=== PATIENT | male | born 1990 | race Caucasian/White ===

== ENCOUNTER 2022-07-21 14:32 | Inpatient (IN) | payer OTHER ==
[2022-07-21 15:25] VITALS: BMI 22.3
[2022-07-21] MEDS ORDERED: MAGNESIUM HYDROX 2400MG/30ML ORAL SUSPENSION 30 ML CUP PO PRN (16:03)
[2022-07-21] MEDS ORDERED: chlordiazePOXIDE HCL 25 MG CAPSULE PO PRN (16:03)
[2022-07-21] MEDS ORDERED: MAG HYDROX/AL HYDROX/SIMETH 30 ML UNIT-DOSE CUP PO PRN (16:03)
[2022-07-21] MEDS ORDERED: IBUPROFEN 400 MG TABLET (FP) PO PRN (16:03)
[2022-07-21] MEDS ORDERED: hydrOXYzine PAMOATE 25 MG CAPSULE (FP) PO PRN (16:03)
[2022-07-21] MEDS ORDERED: BISMUTH SUBSALICYLATE 524 MG/30 ML PO PRN (16:03)
[2022-07-21] MEDS ORDERED: POLYETHYLENE GLYCOL (HEALTHYLAX) 3350 17 GM PACKET PO PRN (16:03)
[2022-07-21] MEDS ORDERED: NALOXONE HCL (KLOXXADO) 8 MG SPRAY NS PRN (16:03)
[2022-07-21] MEDS ORDERED: IBUPROFEN 600 MG TABLET (FP) PO PRN (16:03)
[2022-07-21] MEDS ORDERED: ACETAMINOPHEN 325 MG TABLET (FP) PO PRN ×2 (16:03)
[2022-07-21] MEDS ORDERED: chlordiazePOXIDE HCL 25 MG CAPSULE PO ONE (16:03)
[2022-07-21] MEDS ORDERED: LOPERAMIDE HCL 2 MG CAPSULE PO PRN (16:03)
[2022-07-21] MEDS ORDERED: ONDANSETRON *ODT* 4 MG TABLET SL PRN (16:03)
[2022-07-21] MEDS ORDERED: DICYCLOMINE HCL 10 MG CAPSULE PO PRN (16:03)
[2022-07-21] MEDS ORDERED: METHOCARBAMOL 500 MG TABLET PO PRN (16:03)
[2022-07-21] MEDS ORDERED: BENZOCAINE/MENTHOL (CHLORASEPTIC ) LOZENGE MM PRN (16:03)
[2022-07-21] MEDS ORDERED: chlordiazePOXIDE HCL 25 MG CAPSULE ONE (16:40)
[2022-07-21] MEDS: chlordiazePOXIDE HCL 25 MG CAPSULE PO SCH ×2 (17:54→22:21)
[2022-07-21] MEDS: PRENATAL VITAMINS W/ FOLIC ACID TABLET (FP) PO SCH (17:55)
[2022-07-21] MEDS: NICOTINE 7 MG/24 HOURS TOPICAL PATCH TD SCH (18:04)
[2022-07-21] MEDS: NICOTINE 10 MG CARTRIDGE (INHALER) IH PRN (18:05)
[2022-07-21] MEDS: THIAMINE HCL 100 MG TABLET (FP) PO SCH (22:20)
[2022-07-21] MEDS: MELATONIN 5 MG TABLETS PO SCH (22:20)
[2022-07-22] MEDS: chlordiazePOXIDE HCL 25 MG CAPSULE PO SCH ×4 (06:48→22:02)
[2022-07-22] MEDS: PRENATAL VITAMINS W/ FOLIC ACID TABLET (FP) PO SCH (10:09)
[2022-07-22] MEDS: NICOTINE 7 MG/24 HOURS TOPICAL PATCH TD SCH (10:10)
[2022-07-22] MEDS: NICOTINE 10 MG CARTRIDGE (INHALER) IH PRN ×3 (10:11→20:14)
[2022-07-22] MEDS ORDERED: VENLAFAXINE HCL 75 MG E.R. CAPSULES PO ONE (14:15)
[2022-07-22 15:24] LABS: HEMATOCRIT 41.5 % (35.4-49); HEMOGLOBIN 13.6 GM/dL (11.7-16.9); MCH 29.7 pg (25.7-33.7); MCHC 32.8 g/dl (32.0-35.9); MEAN CELL VOLUME 90.5 fl (80-96); MEAN PLT VOLUME 7.8 fl (7.5-11.1); PLATELET COUNT 355 10^3/uL (134-434); RBC 4.58 M/mm3 (4.00-5.60); RDW 14.3 % (11.9-15.9); WHITE BLOOD COUNT 5.6 K/mm3 (4.0-10.0)
[2022-07-22 15:41] LABS: BLOOD UREA NITROGEN 10.4 mg/dL (7-18)
[2022-07-22 15:42] LABS: ALBUMIN 3.6 g/dl (3.4-5.0)
[2022-07-22 15:45] LABS: CREATININE 0.7 mg/dL (0.55-1.3)
[2022-07-22 15:46] LABS: BILIRUBIN,TOTAL 0.5 mg/dL (0.2-1); TOT PROT 6.8 g/dl (6.4-8.2)
[2022-07-22] MEDS ORDERED: traZODone HCL 100 MG TABLET (FP) PO SCH (22:00)
[2022-07-22] MEDS: THIAMINE HCL 100 MG TABLET (FP) PO SCH (22:02)
[2022-07-22] MEDS: MELATONIN 5 MG TABLETS PO SCH (22:05)
[2022-07-23] MEDS: chlordiazePOXIDE HCL 25 MG CAPSULE PO SCH ×2 (06:01→10:11)
[2022-07-23 09:38] VITALS: BP 130/84; PULSE 90; RESP 16; TEMP 98
[2022-07-23] MEDS ORDERED: NICOTINE POLACRILEX 2 MG GUM BC PRN (09:41)
[2022-07-23] MEDS ORDERED: VENLAFAXINE HCL 150 MG E.R. CAPSULE PO SCH (10:00)
[2022-07-23] MEDS: PRENATAL VITAMINS W/ FOLIC ACID TABLET (FP) PO SCH (10:10)
[2022-07-23] MEDS: NICOTINE 7 MG/24 HOURS TOPICAL PATCH TD SCH (10:13)
[2022-07-24] MEDS ORDERED: chlordiazePOXIDE HCL 10 MG CAPSULE PO PRN
[2022-07-24] MEDS ORDERED: chlordiazePOXIDE HCL 10 MG CAPSULE PO SCH (05:00)
[2022-07-25] MEDS ORDERED: chlordiazePOXIDE HCL 10 MG CAPSULE PO SCH (05:00)
[2022-07-26] MEDS ORDERED: chlordiazePOXIDE HCL 10 MG CAPSULE PO ONE (05:00)
== END 2022-07-23 11:40 | disposition left against medical advice (07) | DRG 770 ==
LOC: YASAS 14:32 → Y3N 16:49
PROVIDERS: ADMIT Allergy & Immunology; ATTEND Surgery
PROC: HZ2ZZZZ Detoxification Services for Substance Abuse Treatment (ICD-10-PCS; principal; 2022-07-21)
DX: F10.230 Alcohol dependence with withdrawal, uncomplicated (principal); F12.20 Cannabis dependence, uncomplicated; F17.210 Nicotine dependence, cigarettes, uncomplicated; F41.1 Generalized anxiety disorder; G47.00 Insomnia, unspecified; Z59.01 Sheltered homelessness
CPT/HCPCS: 36415; 80053; 82140; 85027; 86780; 87811; 93005; 93010; C9803-CS; U0003; U0005

== ENCOUNTER 2022-10-05 11:26 | Inpatient (IN) | payer OTHER ==
[2022-10-05 12:57] VITALS: BMI 24.7
[2022-10-05] MEDS ORDERED: LOPERAMIDE HCL 2 MG CAPSULE PO PRN (13:13)
[2022-10-05] MEDS ORDERED: AMMONIUM LACTATE 12% LOTION 225 GM BOTTLE TP PRN (13:13)
[2022-10-05] MEDS ORDERED: BENZONATATE 200 MG CAPSULE PO PRN (13:13)
[2022-10-05] MEDS ORDERED: IBUPROFEN 400 MG TABLET (FP) PO PRN (13:13)
[2022-10-05] MEDS ORDERED: NALOXONE HCL 0.4 MG/ML VIAL IM PRN (13:13)
[2022-10-05] MEDS ORDERED: NALOXONE HCL (KLOXXADO) 8 MG SPRAY NS PRN (13:13)
[2022-10-05] MEDS ORDERED: COLLOIDAL OATMEAL 1 BAR EACH TP PRN (13:13)
[2022-10-05] MEDS ORDERED: MAGNESIUM HYDROX 2400MG/30ML ORAL SUSPENSION 30 ML CUP PO PRN (13:13)
[2022-10-05] MEDS ORDERED: BENZOCAINE/MENTHOL (CHLORASEPTIC ) LOZENGE MM PRN (13:13)
[2022-10-05] MEDS ORDERED: MAG HYDROX/AL HYDROX/SIMETH 30 ML UNIT-DOSE CUP PO PRN (13:13)
[2022-10-05] MEDS ORDERED: guaiFENesin 600 MG TABLET.ER (FP) PO PRN (13:13)
[2022-10-05] MEDS ORDERED: ACETAMINOPHEN 325 MG TABLET (FP) PO PRN (13:13)
[2022-10-05] MEDS ORDERED: IBUPROFEN 600 MG TABLET (FP) PO PRN (13:13)
[2022-10-05] MEDS ORDERED: TUBERCULIN PPD 5 TU/0.1ML SYRINGE (IN PATIENT USE ONLY) ID ONE (13:13)
[2022-10-05] MEDS ORDERED: POLYETHYLENE GLYCOL (HEALTHYLAX) 3350 17 GM PACKET PO PRN (13:13)
[2022-10-05] MEDS: PRENATAL VITAMINS W/ FOLIC ACID TABLET (FP) PO SCH (15:32)
[2022-10-05] MEDS ORDERED: TUBERCULIN PPD 5 TU/0.1ML VIAL ID ONE (15:35)
[2022-10-05] MEDS: NICOTINE POLACRILEX 2 MG GUM BUC PRN (17:36)
[2022-10-05] MEDS: THIAMINE HCL 100 MG TABLET (FP) PO SCH (21:33)
[2022-10-05] MEDS: MELATONIN 5 MG TABLETS PO SCH (21:33)
[2022-10-06] MEDS: hydrOXYzine PAMOATE 25 MG CAPSULE (FP) PO PRN ×2 (06:44→21:15)
[2022-10-06] MEDS: PRENATAL VITAMINS W/ FOLIC ACID TABLET (FP) PO SCH (09:58)
[2022-10-06] MEDS: VENLAFAXINE HCL 150 MG E.R. CAPSULE PO SCH (09:59)
[2022-10-06] MEDS: NICOTINE 14 MG/24 HOURS TOPICAL PATCH TD SCH (09:59)
[2022-10-06] MEDS: NICOTINE POLACRILEX 2 MG GUM BUC PRN ×4 (10:00→20:35)
[2022-10-06 15:27] LABS: HEMATOCRIT 42.1 % (35.4-49); HEMOGLOBIN 14.2 GM/dL (11.7-16.9); MCH 30.1 pg (25.7-33.7); MCHC 33.8 g/dl (32.0-35.9); MEAN CELL VOLUME 89.1 fl (80-96); MEAN PLT VOLUME 8.7 fl (7.5-11.1); PLATELET COUNT 253 10^3/uL (134-434); RBC 4.73 M/mm3 (4.00-5.60); RDW 13.9 % (11.9-15.9); WHITE BLOOD COUNT 5.2 K/mm3 (4.0-10.0)
[2022-10-06 15:32] LABS: URINE APPEARANCE CLOUDY; URINE BILIRUBIN NEGATIVE (NEGATIVE); URINE COLOR YELLOW; URINE GLUCOSE (UA) 1+ (NEGATIVE); URINE KETONE NEGATIVE (NEGATIVE); URINE LEUK ESTERASE NEGATIVE (NEGATIVE); URINE NITRITE NEGATIVE (NEGATIVE); URINE PROTEIN NEGATIVE (NEGATIVE); URINE UROBILINOGEN 0.2 mg/dL (0.2-1.0)
[2022-10-06 15:51] LABS: POTASSIUM 4.2 mmol/L (3.5-5.1)
[2022-10-06 15:54] LABS: BLOOD UREA NITROGEN 12.9 mg/dL (7-18)
[2022-10-06 15:55] LABS: CALCIUM 9.4 mg/dL (8.5-10.1)
[2022-10-06 15:57] LABS: CREATININE 0.8 mg/dL (0.55-1.3)
[2022-10-06 15:59] LABS: BILIRUBIN,TOTAL 0.6 mg/dL (0.2-1); TOT PROT 7.5 g/dl (6.4-8.2)
[2022-10-06 16:17] LABS: SYPHILIS W/ RPR CONF NON-REACTIVE (NONREACTIVE)
[2022-10-06] MEDS: THIAMINE HCL 100 MG TABLET (FP) PO SCH (21:15)
[2022-10-06] MEDS: MELATONIN 5 MG TABLETS PO SCH (21:16)
[2022-10-06] MEDS: traZODone HCL 50 MG TABLET (FP) PO SCH (21:53)
[2022-10-07] MEDS: NICOTINE POLACRILEX 2 MG GUM BUC PRN ×4 (08:03→18:05)
[2022-10-07] MEDS: PRENATAL VITAMINS W/ FOLIC ACID TABLET (FP) PO SCH (09:57)
[2022-10-07] MEDS: NICOTINE 14 MG/24 HOURS TOPICAL PATCH TD SCH (09:57)
[2022-10-07] MEDS: VENLAFAXINE HCL 150 MG E.R. CAPSULE PO SCH (09:58)
[2022-10-07] MEDS: hydrOXYzine PAMOATE 25 MG CAPSULE (FP) PO PRN (09:58)
[2022-10-07] MEDS: traZODone HCL 50 MG TABLET (FP) PO SCH (22:25)
[2022-10-07] MEDS: THIAMINE HCL 100 MG TABLET (FP) PO SCH (22:25)
[2022-10-07] MEDS: MELATONIN 5 MG TABLETS PO SCH (22:25)
[2022-10-08] MEDS: NICOTINE POLACRILEX 2 MG GUM BUC PRN ×4 (07:52→20:11)
[2022-10-08] MEDS: VENLAFAXINE HCL 150 MG E.R. CAPSULE PO SCH (10:12)
[2022-10-08] MEDS: PRENATAL VITAMINS W/ FOLIC ACID TABLET (FP) PO SCH (10:12)
[2022-10-08] MEDS: NICOTINE 14 MG/24 HOURS TOPICAL PATCH TD SCH (10:13)
[2022-10-08] MEDS: hydrOXYzine PAMOATE 50 MG CAPSULE (FP) PO PRN ×2 (13:59→20:11)
[2022-10-08] MEDS: MELATONIN 5 MG TABLETS PO SCH (21:35)
[2022-10-08] MEDS: THIAMINE HCL 100 MG TABLET (FP) PO SCH (21:36)
[2022-10-08] MEDS ORDERED: traZODone HCL 100 MG TABLET (FP) PO PRN (22:00)
[2022-10-09] MEDS: NICOTINE POLACRILEX 2 MG GUM BUC PRN ×3 (07:54→17:16)
[2022-10-09] MEDS: PRENATAL VITAMINS W/ FOLIC ACID TABLET (FP) PO SCH (10:11)
[2022-10-09] MEDS: NICOTINE 14 MG/24 HOURS TOPICAL PATCH TD SCH (10:11)
[2022-10-09] MEDS: VENLAFAXINE HCL 150 MG E.R. CAPSULE PO SCH (10:12)
[2022-10-09] MEDS: MELATONIN 5 MG TABLETS PO SCH (21:55)
[2022-10-09] MEDS: THIAMINE HCL 100 MG TABLET (FP) PO SCH (21:55)
[2022-10-10] MEDS: NICOTINE POLACRILEX 2 MG GUM BUC PRN ×2 (08:49→17:37)
[2022-10-10] MEDS: PRENATAL VITAMINS W/ FOLIC ACID TABLET (FP) PO SCH (10:08)
[2022-10-10] MEDS: VENLAFAXINE HCL 150 MG E.R. CAPSULE PO SCH (10:08)
[2022-10-10] MEDS: NICOTINE 14 MG/24 HOURS TOPICAL PATCH TD SCH (10:08)
[2022-10-10] MEDS: hydrOXYzine PAMOATE 50 MG CAPSULE (FP) PO PRN (10:09)
[2022-10-10] MEDS: NICOTINE 10 MG CARTRIDGE (INHALER) IH PRN (17:44)
[2022-10-10] MEDS: THIAMINE HCL 100 MG TABLET (FP) PO SCH (22:30)
[2022-10-10] MEDS: MELATONIN 5 MG TABLETS PO SCH (22:30)
[2022-10-11] MEDS: PRENATAL VITAMINS W/ FOLIC ACID TABLET (FP) PO SCH (10:07)
[2022-10-11] MEDS: VENLAFAXINE HCL 150 MG E.R. CAPSULE PO SCH (10:07)
[2022-10-11] MEDS: NICOTINE 14 MG/24 HOURS TOPICAL PATCH TD SCH (10:07)
[2022-10-11] MEDS: NICOTINE POLACRILEX 2 MG GUM BUC PRN ×2 (10:08→17:20)
[2022-10-11] MEDS: NICOTINE 10 MG CARTRIDGE (INHALER) IH PRN (17:19)
[2022-10-11] MEDS: MELATONIN 5 MG TABLETS PO SCH (22:46)
[2022-10-11] MEDS: THIAMINE HCL 100 MG TABLET (FP) PO SCH (22:46)
[2022-10-12] MEDS: VENLAFAXINE HCL 150 MG E.R. CAPSULE PO SCH (10:12)
[2022-10-12] MEDS: PRENATAL VITAMINS W/ FOLIC ACID TABLET (FP) PO SCH (10:12)
[2022-10-12] MEDS: NICOTINE 14 MG/24 HOURS TOPICAL PATCH TD SCH (10:13)
[2022-10-12] MEDS: NICOTINE POLACRILEX 2 MG GUM BUC PRN ×3 (10:14→18:42)
[2022-10-12] MEDS: MELATONIN 5 MG TABLETS PO SCH (22:53)
[2022-10-12] MEDS: THIAMINE HCL 100 MG TABLET (FP) PO SCH (22:54)
[2022-10-13] MEDS: NICOTINE POLACRILEX 2 MG GUM BUC PRN ×2 (08:48→14:46)
[2022-10-13] MEDS: PRENATAL VITAMINS W/ FOLIC ACID TABLET (FP) PO SCH (10:08)
[2022-10-13] MEDS: VENLAFAXINE HCL 75 MG E.R. CAPSULES PO SCH (10:09)
[2022-10-13] MEDS: NICOTINE 14 MG/24 HOURS TOPICAL PATCH TD SCH (10:09)
[2022-10-13] MEDS: NICOTINE 10 MG CARTRIDGE (INHALER) IH PRN (10:10)
[2022-10-13] MEDS: MELATONIN 5 MG TABLETS PO SCH (21:53)
[2022-10-13] MEDS: THIAMINE HCL 100 MG TABLET (FP) PO SCH (21:53)
[2022-10-14] MEDS: VENLAFAXINE HCL 75 MG E.R. CAPSULES PO SCH (10:15)
[2022-10-14] MEDS: PRENATAL VITAMINS W/ FOLIC ACID TABLET (FP) PO SCH (10:15)
[2022-10-14] MEDS: NICOTINE 14 MG/24 HOURS TOPICAL PATCH TD SCH (10:16)
[2022-10-14] MEDS: MELATONIN 5 MG TABLETS PO SCH (22:33)
[2022-10-14] MEDS: THIAMINE HCL 100 MG TABLET (FP) PO SCH (22:34)
[2022-10-15] MEDS: PRENATAL VITAMINS W/ FOLIC ACID TABLET (FP) PO SCH (09:56)
[2022-10-15] MEDS: VENLAFAXINE HCL 75 MG E.R. CAPSULES PO SCH (09:57)
[2022-10-15] MEDS: NICOTINE POLACRILEX 2 MG GUM BUC PRN (09:57)
[2022-10-15] MEDS: NICOTINE 14 MG/24 HOURS TOPICAL PATCH TD SCH (10:00)
[2022-10-15] MEDS: MELATONIN 5 MG TABLETS PO SCH (21:41)
[2022-10-15] MEDS: THIAMINE HCL 100 MG TABLET (FP) PO SCH (21:41)
[2022-10-16] MEDS: PRENATAL VITAMINS W/ FOLIC ACID TABLET (FP) PO SCH (09:54)
[2022-10-16] MEDS: NICOTINE 14 MG/24 HOURS TOPICAL PATCH TD SCH (09:54)
[2022-10-16] MEDS: VENLAFAXINE HCL 75 MG E.R. CAPSULES PO SCH (09:55)
[2022-10-16] MEDS: NICOTINE POLACRILEX 2 MG GUM BUC PRN (18:40)
[2022-10-16] MEDS: MELATONIN 5 MG TABLETS PO SCH (22:02)
[2022-10-16] MEDS: THIAMINE HCL 100 MG TABLET (FP) PO SCH (22:02)
[2022-10-17] MEDS: NICOTINE 14 MG/24 HOURS TOPICAL PATCH TD SCH (10:19)
[2022-10-17] MEDS: VENLAFAXINE HCL 75 MG E.R. CAPSULES PO SCH (10:19)
[2022-10-17] MEDS: PRENATAL VITAMINS W/ FOLIC ACID TABLET (FP) PO SCH (10:19)
[2022-10-17] MEDS: NICOTINE POLACRILEX 2 MG GUM BUC PRN (16:14)
[2022-10-17] MEDS: MELATONIN 5 MG TABLETS PO SCH (23:49)
[2022-10-17] MEDS: THIAMINE HCL 100 MG TABLET (FP) PO SCH (23:49)
[2022-10-18] MEDS: VENLAFAXINE HCL 75 MG E.R. CAPSULES PO SCH (09:45)
[2022-10-18] MEDS: NICOTINE 14 MG/24 HOURS TOPICAL PATCH TD SCH (09:46)
[2022-10-18] MEDS: PRENATAL VITAMINS W/ FOLIC ACID TABLET (FP) PO SCH (09:46)
[2022-10-18] MEDS: NICOTINE POLACRILEX 2 MG GUM BUC PRN ×3 (09:47→18:08)
[2022-10-18] MEDS: MELATONIN 5 MG TABLETS PO SCH (21:32)
[2022-10-18] MEDS: THIAMINE HCL 100 MG TABLET (FP) PO SCH (21:32)
[2022-10-19] MEDS: VENLAFAXINE HCL 75 MG E.R. CAPSULES PO SCH (10:02)
[2022-10-19] MEDS: NICOTINE 14 MG/24 HOURS TOPICAL PATCH TD SCH (10:02)
[2022-10-19] MEDS: PRENATAL VITAMINS W/ FOLIC ACID TABLET (FP) PO SCH (10:02)
[2022-10-19] MEDS: NICOTINE POLACRILEX 2 MG GUM BUC PRN (12:13)
[2022-10-19] MEDS: hydrOXYzine PAMOATE 50 MG CAPSULE (FP) PO PRN ×2 (13:47→18:22)
[2022-10-19] MEDS: MELATONIN 5 MG TABLETS PO SCH (21:31)
[2022-10-19] MEDS: THIAMINE HCL 100 MG TABLET (FP) PO SCH (21:31)
[2022-10-20] MEDS: NICOTINE POLACRILEX 2 MG GUM BUC PRN ×2 (07:48→12:17)
[2022-10-20] MEDS: PRENATAL VITAMINS W/ FOLIC ACID TABLET (FP) PO SCH (09:58)
[2022-10-20] MEDS: VENLAFAXINE HCL 75 MG E.R. CAPSULES PO SCH (09:58)
[2022-10-20] MEDS: NICOTINE 14 MG/24 HOURS TOPICAL PATCH TD SCH (09:58)
[2022-10-20] MEDS: hydrOXYzine PAMOATE 50 MG CAPSULE (FP) PO PRN (09:59)
[2022-10-20] MEDS: NICOTINE 10 MG CARTRIDGE (INHALER) IH PRN ×2 (10:01→15:00)
[2022-10-20] MEDS: propRANOLol HCL 10 MG TABLET PO PRN ×2 (12:20→20:15)
[2022-10-20] MEDS: THIAMINE HCL 100 MG TABLET (FP) PO SCH (22:18)
[2022-10-20] MEDS: MELATONIN 5 MG TABLETS PO SCH (22:18)
[2022-10-21 08:23] VITALS: RESP 18
[2022-10-21] MEDS: PRENATAL VITAMINS W/ FOLIC ACID TABLET (FP) PO SCH (09:37)
[2022-10-21] MEDS: NICOTINE 14 MG/24 HOURS TOPICAL PATCH TD SCH (09:37)
[2022-10-21] MEDS: NICOTINE 10 MG CARTRIDGE (INHALER) IH PRN (09:38)
[2022-10-21] MEDS: NICOTINE POLACRILEX 2 MG GUM BUC PRN ×2 (09:39→13:46)
[2022-10-21] MEDS: propRANOLol HCL 10 MG TABLET PO PRN (12:27)
[2022-10-21] MEDS: THIAMINE HCL 100 MG TABLET (FP) PO SCH (21:38)
[2022-10-21] MEDS: MELATONIN 5 MG TABLETS PO SCH (21:38)
[2022-10-22] MEDS: NICOTINE 14 MG/24 HOURS TOPICAL PATCH TD SCH (09:02)
[2022-10-22] MEDS: NICOTINE 10 MG CARTRIDGE (INHALER) IH PRN (09:02)
[2022-10-22] MEDS: PRENATAL VITAMINS W/ FOLIC ACID TABLET (FP) PO SCH (09:02)
[2022-10-22] MEDS: NICOTINE POLACRILEX 2 MG GUM BUC PRN (09:03)
[2022-10-22] MEDS: hydrOXYzine PAMOATE 50 MG CAPSULE (FP) PO PRN ×2 (09:03→18:30)
[2022-10-22] MEDS: MELATONIN 5 MG TABLETS PO SCH (21:35)
[2022-10-22] MEDS: THIAMINE HCL 100 MG TABLET (FP) PO SCH (21:35)
[2022-10-23 07:18] VITALS: BP 123/78; PULSE 68; TEMP 97.5
[2022-10-23] MEDS: NICOTINE POLACRILEX 2 MG GUM BUC PRN (07:52)
[2022-10-23] MEDS: NICOTINE 14 MG/24 HOURS TOPICAL PATCH TD SCH (10:32)
[2022-10-23] MEDS: PRENATAL VITAMINS W/ FOLIC ACID TABLET (FP) PO SCH (10:33)
== END 2022-10-23 12:30 | disposition left against medical advice (07) | DRG 770 ==
LOC: YASAS 11:26 → Y5N 13:59
PROVIDERS: ADMIT Allergy & Immunology; ATTEND Psychiatry & Neurology Pain Medicine
PROC: HZ42ZZZ Group Counseling for Substance Abuse Treatment, Cognitive-Behavioral (ICD-10-PCS; principal; 2022-10-05)
DX: F10.20 Alcohol dependence, uncomplicated (principal); F13.20 Sedative, hypnotic or anxiolytic dependence, uncomplicated; F12.20 Cannabis dependence, uncomplicated; F17.210 Nicotine dependence, cigarettes, uncomplicated; F19.282 Other psychoactive substance dependence with psychoactive substance-induced sleep disorder; F41.1 Generalized anxiety disorder; F91.8 Other conduct disorders; Z91.199 Patient's noncompliance with other medical treatment and regimen due to unspecified reason; Z59.01 Sheltered homelessness; Z56.0 Unemployment, unspecified
CPT/HCPCS: 36415; 80053; 81003; 85027; 86780; 86803; 87811; C9803-CS; U0003; U0005

== ENCOUNTER 2024-07-02 10:35 | Inpatient (IN) | payer OTHER ==
[2024-07-02 11:01] VITALS: BMI 25.4
[2024-07-02] MEDS ORDERED: diazePAM 5 MG TABLET PO PRN (11:09)
[2024-07-02] MEDS ORDERED: NICOTINE POLACRILEX 2 MG LOZENGE BC PRN (11:13)
[2024-07-02] MEDS ORDERED: MAGNESIUM HYDROX 2400MG/30ML ORAL SUSPENSION 30 ML CUP PO PRN (11:13)
[2024-07-02] MEDS ORDERED: ACETAMINOPHEN 325 MG TABLET (FP) PO PRN (11:13)
[2024-07-02] MEDS ORDERED: DICYCLOMINE HCL 10 MG CAPSULE PO PRN (11:13)
[2024-07-02] MEDS ORDERED: BENZONATATE 200 MG CAPSULE PO PRN (11:13)
[2024-07-02] MEDS ORDERED: NALOXONE (NARCAN) HCL 4 MG/0.1 ML SPRAY NS PRN (11:13)
[2024-07-02] MEDS ORDERED: LOPERAMIDE HCL 2 MG CAPSULE PO PRN (11:13)
[2024-07-02] MEDS ORDERED: MAG HYDROX/AL HYDROX/SIMETH 30 ML UNIT-DOSE CUP PO PRN (11:13)
[2024-07-02] MEDS ORDERED: BISMUTH SUBSALICYLATE 524 MG/30 ML PO PRN (11:13)
[2024-07-02] MEDS ORDERED: BENZOCAINE/MENTHOL (CHLORASEPTIC ) LOZENGE MM PRN (11:13)
[2024-07-02] MEDS ORDERED: IBUPROFEN 400 MG TABLET (FP) PO PRN (11:13)
[2024-07-02] MEDS ORDERED: ONDANSETRON *ODT* 4 MG TABLET SL PRN (11:13)
[2024-07-02] MEDS ORDERED: POLYETHYLENE GLYCOL (HEALTHYLAX) 3350 17 GM PACKET PO PRN (11:13)
[2024-07-02] MEDS ORDERED: diazePAM 5 MG TABLET ONE (11:46)
[2024-07-02] MEDS: diazePAM 5 MG TABLET PO SCH (11:48)
[2024-07-02] MEDS: NICOTINE POLACRILEX 2 MG GUM BUC PRN (16:37)
[2024-07-02] MEDS: MELATONIN 5 MG TABLETS PO SCH (22:10)
[2024-07-02] MEDS: THIAMINE 100 MG TABLET PO SCH (22:10)
[2024-07-02] MEDS: METHOCARBAMOL 500 MG TABLET PO PRN (22:11)
[2024-07-03] MEDS: guaiFENesin 600 MG TABLET.ER (FP) PO PRN (09:09)
[2024-07-03] MEDS: IBUPROFEN 600 MG TABLET (FP) PO PRN (09:09)
[2024-07-03] MEDS: PRENATAL VITAMINS W/ FOLIC ACID TABLET (FP) PO SCH (09:09)
[2024-07-03] MEDS: VENLAFAXINE HCL 150 MG E.R. CAPSULE PO SCH (11:13)
[2024-07-03] MEDS: diazePAM 5 MG TABLET PO SCH (11:15)
[2024-07-03 12:04] LABS: HEMATOCRIT 40.4 % (35.4-49); HEMOGLOBIN 13.8 GM/dL (11.7-16.9); MCH 30.3 pg (25.7-33.7); MCHC 34.1 g/dl (32.0-35.9); MEAN CELL VOLUME 88.9 fl (80-96); MEAN PLT VOLUME 7.5 fl (7.5-11.1); PLATELET COUNT 247 10^3/uL (134-434); RBC 4.55 M/mm3 (4.00-5.60); RDW 13.8 % (11.9-15.9); WHITE BLOOD COUNT 6.6 K/mm3 (4.0-10.0)
[2024-07-03 12:06] LABS: POTASSIUM 4.2 mmol/L (3.5-5.1)
[2024-07-03 12:08] LABS: ALBUMIN 3.3 g/dl (3.4-5.0)
[2024-07-03 12:09] LABS: BLOOD UREA NITROGEN 13.6 mg/dL (7-18)
[2024-07-03 12:12] LABS: CREATININE 0.7 mg/dL (0.55-1.3)
[2024-07-03 12:13] LABS: BILIRUBIN,TOTAL 0.4 mg/dL (0.2-1); TOT PROT 6.6 g/dl (6.4-8.2)
[2024-07-03] MEDS: diazePAM 5 MG TABLET PO PRN (13:03)
[2024-07-03] MEDS: NICOTINE POLACRILEX 4 MG LOZENGE BC PRN (16:04)
[2024-07-03] MEDS: traZODone HCL 100 MG TABLET (FP) PO SCH (22:09)
[2024-07-04] MEDS: diazePAM 5 MG TABLET PO SCH (05:45)
[2024-07-04] MEDS ORDERED: diazePAM 5 MG TABLET PO SCH (06:00)
[2024-07-04] MEDS: AMOX TR/POT CLAV 875MG/125MG TABLETS (FP) PO ONE (12:20)
[2024-07-04] MEDS: AMOX TR/POT CLAV 875MG/125MG TABLETS (FP) PO SCH (17:22)
[2024-07-05] MEDS: diazePAM 5 MG TABLET PO SCH (06:00)
[2024-07-05] MEDS ORDERED: diazePAM 5 MG TABLET PO SCH (06:00)
[2024-07-06] MEDS ORDERED: diazePAM 5 MG TABLET PO ONE (06:00)
[2024-07-06] MEDS: diazePAM 5 MG TABLET PO ONE (06:05)
[2024-07-07 08:41] VITALS: BP 145/90; PULSE 80; RESP 18; TEMP 98.1
== END 2024-07-07 09:47 | disposition other institution (70) | DRG 775 ==
LOC: YASAS 10:35 → Y3N 11:23
PROVIDERS: ADMIT Allergy & Immunology; ATTEND Allergy & Immunology
PROC: HZ2ZZZZ Detoxification Services for Substance Abuse Treatment (ICD-10-PCS; principal; 2024-07-02)
DX: F10.230 Alcohol dependence with withdrawal, uncomplicated (principal); F19.282 Other psychoactive substance dependence with psychoactive substance-induced sleep disorder; F19.24 Other psychoactive substance dependence with psychoactive substance-induced mood disorder; F41.1 Generalized anxiety disorder; J32.9 Chronic sinusitis, unspecified; R03.0 Elevated blood-pressure reading, without diagnosis of hypertension; Z87.891 Personal history of nicotine dependence
CPT/HCPCS: 36415; 80053; 80305; 80307; 85027; 86780; 93005; 93010